=== PATIENT | female | born 1990 | race Caucasian/White ===

== ENCOUNTER 2016-08-05 22:29 | Emergency (ER) | payer OTHER ==
[~2016-08-05] VITALS: Ht 162.6 cm; Wt 60.1 kg
[~2016-08-05 22:29] MED LIST: FLEXERIL10 MG PO; NAPROSYN500 MG PO; NORCO 5/325 MG1 TAB PO; TYLENOL160 MG/5 M PO
[2016-08-05 22:42] VITALS: BP 117/75
--- NOTE | 2016-08-05 22:58 | NUR ---
TO ER OF1
--- NOTE | 2016-08-05 22:59 | NUR ---
PT BIB FAMILY C/O COUGH, SORETHROAT X TODAY. PT STATES SHE NOTICIED BLOOD IN SPUTUM TODAY BUT DENIES ANY FEVER, CHILLS OR LOST OF WEIGHT. NO MED HX.Patient appears to be resting comfortably in bed. Vital Signs within normal limits. Respirations even and unlabored.
[2016-08-05 23:10] VITALS: BP 114/68
--- NOTE | 2016-08-05 23:10 | NUR ---
Patient discharged with v/s stable. Written and verbal after care instructions given and explained to parent/guardian. Parent/Guardian verbalized understanding of instructions. Ambulatory with steady gait. All questions addressed prior to discharge. ID band removed. Parent/Guardian advised to follow up with PMD. Rx of AUGMENTIN 875 BID given. Parent/Guardian educated on indication of medication including possible reaction and side effects. Opportunity to ask questions provided and answered.
== END 2016-08-05 23:07 | disposition home or self-care (01) ==
LOC: MED 22:29
DX: J02.9 Acute pharyngitis, unspecified (principal)